=== PATIENT | male | born 1985 | race Asian ===

== ENCOUNTER 2017-10-28 23:33 | Emergency (ER) | payer MEDICARE, OTHER ==
[~2017-10-28] VITALS: Ht 162.6 cm; Wt 90.9 kg
[~2017-10-28 23:33] MED LIST: ARIP10TA8 PO; BENZ2TAB58 PO; DIVA500T52 PO; OLAN15TA2 PO
[2017-10-28] MEDS ORDERED: CLON0.5T4 PO (23:52)
[2017-10-28] MEDS ORDERED: ARIP400S IM (23:52)
[2017-10-28] MEDS ORDERED: DIVA500T52 PO (23:52)
[2017-10-29 00:23] LABS: BASOPHILS % (AUTO) 0.3 % (0.0-2.0); EOSINOPHILS % (AUTO) 2.3 % (1.0-6.0); HEMATOCRIT 51.1 % (41-53); HEMOGLOBIN 17.2 g/dL (13.5-17.5); LYMPHOCYTES # (AUTO) 2.8 K/uL (1.0-4.8); LYMPHOCYTES % (AUTO) 26.9 % (22.0-44.0); MEAN CORPUSCULAR HEMOGLOBIN 32.6 pg (26.0-34.0); MEAN CORPUSCULAR HGB CONC 33.6 G/dL (31.0-37.0); MEAN CORPUSCULAR VOLUME 97 fL (80-100); MONOCYTES # (AUTO) 0.8 K/uL (0.1-1.0); MONOCYTES % (AUTO) 7.7 % (2.0-9.0); NEUTROPHILS # (AUTO) 6.6 K/uL (1.8-7.7); NEUTROPHILS % (AUTO) 62.8 % (40.0-70.0); PLATELET COUNT (AUTO) 230 K/uL (150-450); RED BLOOD CELL COUNT(AUTO) 5.26 MIL/uL (4.50-5.90); RED CELL DISTRIBUTION WIDTH 13.2 % (11.5-14.5)
[2017-10-29 00:33] LABS: ANION GAP 5 mmol/L (8-16); CALCIUM, TOTAL 8.7 mg/dL (8.8-10.5); CARBON DIOXIDE 31 mmol/L (22-29); CHLORIDE 101 mmol/L (98-107); CREATININE 0.99 mg/dL (0.60-1.30); GLOMERULAR FILTR. RATE CALC > 60 mL/min (>60); GLUCOSE,RANDOM 94 mg/dL (70-110); POTASSIUM 4.1 mmol/L (3.5-5.1); SODIUM SERUM 137 mmol/L (136-145); UREA NITROGEN, BLOOD 17 mg/dL (7-18)
[2017-10-29 00:38] LABS: ALANINE AMINOTRANSFERASE 37 U/L (12-78); ALBUMIN 3.3 g/dL (3.4-5.0); ALKALINE PHOSPHATASE 48 U/L (46-116); ASPARTATE AMINOTRANSFERASE 23 U/L (15-37); BILIRUBIN,TOTAL 0.3 mg/dL (0.1-1.0); TOTAL PROTEIN, SERUM 6.8 g/dL (6.4-8.2)
[2017-10-29 01:05] VITALS: BP 121/81
== END 2017-10-29 01:25 | disposition home or self-care (01) ==
LOC: EMS 23:35
DX: R07.89 Other chest pain (principal); F20.9 Schizophrenia, unspecified
CPT/HCPCS: 93005; 99285

== ENCOUNTER 2018-01-11 08:54 | Emergency (ER) | payer MEDICARE, SELFPAY ==
[~2018-01-11] VITALS: Ht 162.6 cm; Wt 88.6 kg
[~2018-01-11 08:54] MED LIST changes: +ARIP400S IM; -BENZ2TAB58 PO; +CLON0.5T4 PO; -OLAN15TA2 PO
[2018-01-11 09:30] VITALS: BP 129/84
[2018-01-11 09:30] LABS: BASOPHILS % (AUTO) 0.4 % (0.0-2.0); EOSINOPHILS % (AUTO) 1.3 % (1.0-6.0); LYMPHOCYTES # (AUTO) 1.6 K/uL (1.0-4.8); LYMPHOCYTES % (AUTO) 14.5 % (22.0-44.0); MEAN CORPUSCULAR HEMOGLOBIN 33.2 pg (26.0-34.0); MEAN CORPUSCULAR HGB CONC 34.6 G/dL (31.0-37.0); MEAN CORPUSCULAR VOLUME 96 fL (80-100); MONOCYTES # (AUTO) 0.5 K/uL (0.1-1.0); MONOCYTES % (AUTO) 4.5 % (2.0-9.0); NEUTROPHILS # (AUTO) 8.7 K/uL (1.8-7.7); NEUTROPHILS % (AUTO) 79.3 % (40.0-70.0); PLATELET COUNT (AUTO) 266 K/uL (150-450); RED BLOOD CELL COUNT(AUTO) 5.41 MIL/uL (4.50-5.90); RED CELL DISTRIBUTION WIDTH 12.8 % (11.5-14.5)
[2018-01-11 09:39] LABS: ANION GAP 9 mmol/L (8-16); CARBON DIOXIDE 26 mmol/L (22-29); CHLORIDE 102 mmol/L (98-107); CREATININE 0.95 mg/dL (0.60-1.30); GLOMERULAR FILTR. RATE CALC > 60 mL/min (>60); GLUCOSE,RANDOM 106 mg/dL (70-110); POTASSIUM 3.9 mmol/L (3.5-5.1); SODIUM SERUM 137 mmol/L (136-145); UREA NITROGEN, BLOOD 21 mg/dL (7-18)
[2018-01-11 09:43] LABS: AMPHET/METH SCREEN,URINE NEGATIVE (NEGATIVE); BARBITURATE SCREEN, URINE NEGATIVE (NEGATIVE); BENZODIAZEPINES SCREEN,URINE NEGATIVE (NEGATIVE); CANNABINOID SCREEN,URINE NEGATIVE (NEGATIVE); COCAINE SCREEN,URINE NEGATIVE (NEGATIVE); METHADONE SCREEN, URINE NEGATIVE (NEGATIVE); OPIATE SCREEN,URINE NEGATIVE (NEGATIVE)
[2018-01-11 09:44] LABS: ALANINE AMINOTRANSFERASE 58 U/L (12-78); ALBUMIN 3.6 g/dL (3.4-5.0); ALKALINE PHOSPHATASE 57 U/L (46-116); ASPARTATE AMINOTRANSFERASE 25 U/L (15-37); BILIRUBIN,TOTAL 0.2 mg/dL (0.1-1.0); TOTAL PROTEIN, SERUM 7.3 g/dL (6.4-8.2)
[2018-01-11 09:50] LABS: PHENCYCLIDINE SCREEN,URINE NEGATIVE (NEGATIVE)
== END 2018-01-11 11:13 | disposition home or self-care (01) ==
LOC: EMS 08:56
DX: F25.9 Schizoaffective disorder, unspecified (principal); F31.9 Bipolar disorder, unspecified; F41.9 Anxiety disorder, unspecified; Z76.0 Encounter for issue of repeat prescription
CPT/HCPCS: 36415; 80053; 80307; 85025; 99284; G0480

== ENCOUNTER 2018-01-31 07:22 | Emergency (ER) | payer MEDICARE ==
[~2018-01-31] VITALS: Ht 162.6 cm; Wt 90.9 kg
[~2018-01-31 07:22] MED LIST changes: -ARIP10TA8 PO; -DIVA500T52 PO
[2018-01-31 07:45] VITALS: BP 130/73
[2018-01-31 09:14] LABS: AMPHET/METH SCREEN,URINE NEGATIVE (NEGATIVE); BARBITURATE SCREEN, URINE NEGATIVE (NEGATIVE); BENZODIAZEPINES SCREEN,URINE NEGATIVE (NEGATIVE); CANNABINOID SCREEN,URINE NEGATIVE (NEGATIVE); COCAINE SCREEN,URINE NEGATIVE (NEGATIVE); METHADONE SCREEN, URINE NEGATIVE (NEGATIVE); OPIATE SCREEN,URINE NEGATIVE (NEGATIVE)
[2018-01-31 09:20] LABS: PHENCYCLIDINE SCREEN,URINE NEGATIVE (NEGATIVE)
== END 2018-01-31 09:40 | disposition home or self-care (01) ==
LOC: EMS 07:23
DX: F25.9 Schizoaffective disorder, unspecified (principal); F12.90 Cannabis use, unspecified, uncomplicated
CPT/HCPCS: 99284

== ENCOUNTER 2018-03-28 16:34 | Inpatient (IN) | payer MEDICARE, MEDICAID ==
[~2018-03-28] VITALS: Ht 162.6 cm; Wt 98.7 kg
[~2018-03-28 16:34] MED LIST changes: -CLON0.5T4 PO
[2018-03-28 19:59] LABS: BASOPHILS % (AUTO) 0.4 % (0.0-2.0); EOSINOPHILS % (AUTO) 1.7 % (1.0-6.0); HEMATOCRIT 52.3 % (41-53); HEMOGLOBIN 18.3 g/dL (13.5-17.5); LYMPHOCYTES # (AUTO) 2.4 K/uL (1.0-4.8); LYMPHOCYTES % (AUTO) 25.2 % (22.0-44.0); MEAN CORPUSCULAR HEMOGLOBIN 33.4 pg (26.0-34.0); MEAN CORPUSCULAR VOLUME 96 fL (80-100); MONOCYTES # (AUTO) 0.6 K/uL (0.1-1.0); MONOCYTES % (AUTO) 6.1 % (2.0-9.0); NEUTROPHILS # (AUTO) 6.3 K/uL (1.8-7.7); NEUTROPHILS % (AUTO) 66.6 % (40.0-70.0); PLATELET COUNT (AUTO) 255 K/uL (150-450); RED BLOOD CELL COUNT(AUTO) 5.47 MIL/uL (4.50-5.90); RED CELL DISTRIBUTION WIDTH 12.7 % (11.5-14.5)
[2018-03-28 20:22] LABS: ANION GAP 4 mmol/L (8-16); CALCIUM, TOTAL 8.8 mg/dL (8.8-10.5); CARBON DIOXIDE 30 mmol/L (22-29); CHLORIDE 105 mmol/L (98-107); GLOMERULAR FILTR. RATE CALC > 60 mL/min (>60); GLUCOSE,RANDOM 91 mg/dL (70-110); SODIUM SERUM 139 mmol/L (136-145); UREA NITROGEN, BLOOD 9 mg/dL (7-18)
[2018-03-28 20:28] LABS: ALANINE AMINOTRANSFERASE 39 U/L (12-78); ALKALINE PHOSPHATASE 63 U/L (46-116); ASPARTATE AMINOTRANSFERASE 19 U/L (15-37); BILIRUBIN,TOTAL 0.4 mg/dL (0.1-1.0); TOTAL PROTEIN, SERUM 7.8 g/dL (6.4-8.2)
[2018-03-28] MEDS ORDERED: HALOPERIDOL 5 MG TABLET PO PRN (23:15)
[2018-03-29 00:59] LABS: AMPHET/METH SCREEN,URINE NEGATIVE (NEGATIVE); BARBITURATE SCREEN, URINE NEGATIVE (NEGATIVE); BENZODIAZEPINES SCREEN,URINE NEGATIVE (NEGATIVE); CANNABINOID SCREEN,URINE NEGATIVE (NEGATIVE); COCAINE SCREEN,URINE NEGATIVE (NEGATIVE); METHADONE SCREEN, URINE NEGATIVE (NEGATIVE); OPIATE SCREEN,URINE NEGATIVE (NEGATIVE)
[2018-03-29 01:00] LABS: PHENCYCLIDINE SCREEN,URINE NEGATIVE (NEGATIVE)
[2018-03-29 04:49] VITALS: BP 126/81
[2018-03-29 08:30] VITALS: BP 123/60
[2018-03-29 09:20] LABS: HEMOGLOBIN A1C 5.2 % (4.5-6.2)
[2018-03-29 09:31] LABS: FREE T4 (FREE THYROXINE) 0.96 ng/dL (0.76-1.46); THYROID STIMULATING HORMONE 1.36 uIU/mL (0.36-3.74)
[2018-03-29] MEDS: NICOTINE 21 MG/24 HOUR PATCH TD SCH (14:55)
[2018-03-29 16:07] VITALS: BP 126/72
[2018-03-29] MEDS: BACITRACIN 28.4 GM OINTMENT TP SCH (16:29)
[2018-03-29] MEDS: ZOLPIDEM TARTRATE 10 MG TABLET PO PRN (20:54)
[2018-03-30 01:03] VITALS: BP 108/68
[2018-03-30 08:26] VITALS: BP 121/72
[2018-03-30] MEDS: SERTRALINE HCL 50 MG TABLET PO SCH (08:43)
[2018-03-30] MEDS: NICOTINE 21 MG/24 HOUR PATCH TD SCH (08:44)
[2018-03-30] MEDS: BACITRACIN 28.4 GM OINTMENT TP SCH ×2 (08:48→16:55)
[2018-03-30 16:04] VITALS: BP 125/74
[2018-03-30] MEDS: ZOLPIDEM TARTRATE 10 MG TABLET PO PRN (20:37)
[2018-03-31 01:55] VITALS: BP 125/77
[2018-03-31] MEDS: LORazepam 2 MG TABLET PO PRN (02:08)
[2018-03-31 08:14] VITALS: BP 119/74
[2018-03-31] MEDS: SERTRALINE HCL 50 MG TABLET PO SCH (08:36)
[2018-03-31] MEDS: NICOTINE 21 MG/24 HOUR PATCH TD SCH (08:37)
[2018-03-31] MEDS: BACITRACIN 28.4 GM OINTMENT TP SCH ×2 (08:38→16:14)
[2018-03-31 16:02] VITALS: BP 109/85
[2018-03-31] MEDS: ZOLPIDEM TARTRATE 10 MG TABLET PO PRN (20:35)
[2018-04-01 01:40] VITALS: BP 123/85
[2018-04-01] MEDS: LORazepam 2 MG TABLET PO PRN (03:25)
[2018-04-01 08:18] VITALS: BP 127/76
[2018-04-01] MEDS: SERTRALINE HCL 50 MG TABLET PO SCH (08:36)
[2018-04-01] MEDS: NICOTINE 21 MG/24 HOUR PATCH TD SCH (08:36)
[2018-04-01] MEDS: BACITRACIN 28.4 GM OINTMENT TP SCH ×2 (08:38→16:41)
[2018-04-01 16:04] VITALS: BP 110/60
[2018-04-01] MEDS: ZOLPIDEM TARTRATE 10 MG TABLET PO PRN (20:49)
[2018-04-02 05:48] VITALS: BP 101/61
[2018-04-02 08:21] VITALS: BP 126/74
[2018-04-02] MEDS: SERTRALINE HCL 50 MG TABLET PO SCH (09:37)
[2018-04-02] MEDS: BACITRACIN 28.4 GM OINTMENT TP SCH ×2 (09:38→16:34)
[2018-04-02] MEDS: NICOTINE 21 MG/24 HOUR PATCH TD SCH (09:43)
[2018-04-02 16:12] VITALS: BP 132/84
[2018-04-02] MEDS: ZOLPIDEM TARTRATE 10 MG TABLET PO PRN (21:02)
[2018-04-03 00:15] VITALS: BP 124/77
[2018-04-03 08:14] VITALS: BP 129/88
[2018-04-03] MEDS: SERTRALINE HCL 50 MG TABLET PO SCH (08:36)
[2018-04-03] MEDS: NICOTINE 21 MG/24 HOUR PATCH TD SCH (08:36)
[2018-04-03] MEDS: BACITRACIN 28.4 GM OINTMENT TP SCH (08:36)
[2018-04-03 16:10] VITALS: BP 138/85
[2018-04-03] MEDS: ZOLPIDEM TARTRATE 10 MG TABLET PO PRN (21:10)
[2018-04-04 00:13] VITALS: BP 114/61
[2018-04-04] MEDS: SERTRALINE HCL 50 MG TABLET PO SCH (08:37)
[2018-04-04] MEDS: NICOTINE 21 MG/24 HOUR PATCH TD SCH (08:37)
[2018-04-04 08:38] VITALS: BP 125/77
[2018-04-04 16:09] VITALS: BP 122/72
[2018-04-04] MEDS: ZOLPIDEM TARTRATE 10 MG TABLET PO PRN (20:45)
[2018-04-05 08:04] VITALS: BP 122/76
[2018-04-05] MEDS: SERTRALINE HCL 50 MG TABLET PO SCH (08:15)
[2018-04-05] MEDS: NICOTINE 21 MG/24 HOUR PATCH TD SCH (08:15)
[2018-04-05] MEDS ORDERED: SERT50TA12 PO (08:45)
[2018-04-26] MEDS ORDERED: ARIPiprazole ER SUSPENSION 400 MG PRE-FILLED DUAL CHAMBER SYRINGE IM SCH (09:00)
== END 2018-04-05 13:30 | disposition home or self-care (01) | DRG 885 ==
LOC: EMS 16:34 → B2X 23:30
PROVIDERS: ADMIT Psychiatry & Neurology Psychiatry; ATTEND Psychiatry & Neurology Psychiatry
DX: F25.0 Schizoaffective disorder, bipolar type (principal); R45.851 Suicidal ideations; E78.5 Hyperlipidemia, unspecified; F17.210 Nicotine dependence, cigarettes, uncomplicated; F41.9 Anxiety disorder, unspecified; I10 Essential (primary) hypertension; Z91.5 Personal history of self-harm; Z71.6 Tobacco abuse counseling; Z79.899 Other long term (current) drug therapy; Z82.0 Family history of epilepsy and other diseases of the nervous system
CPT/HCPCS: 83036; 84439; 84443; 99285; G0480

== ENCOUNTER 2018-04-11 06:00 | Emergency (ER) | payer MEDICARE, MEDICAID ==
[~2018-04-11] VITALS: Ht 167.6 cm; Wt 90.9 kg
[~2018-04-11 06:00] MED LIST changes: +SERT50TA12 PO
[2018-04-11 06:36] VITALS: BP 136/74
== END 2018-04-11 08:52 | disposition home or self-care (01) ==
LOC: EMS 06:04
DX: L30.9 Dermatitis, unspecified (principal)
CPT/HCPCS: 99282

== ENCOUNTER 2018-08-23 08:01 | Emergency (ER) | payer MEDICARE, MEDICAID ==
[~2018-08-23] VITALS: Ht 162.6 cm; Wt 100.0 kg
[2018-08-23] MEDS ORDERED: AZITHROMYCIN 250 MG TABLET PO ONE (09:15)
[2018-08-23] MEDS ORDERED: CefTRIAXone SODIUM 1 GM/VIAL IM ONE (09:15)
[2018-08-23 12:07] VITALS: BP 119/58
== END 2018-08-23 12:13 | disposition home or self-care (01) ==
LOC: EMS 08:02
DX: N34.2 Other urethritis (principal); F20.9 Schizophrenia, unspecified
CPT/HCPCS: 96372; 99283; J0696

== ENCOUNTER 2018-11-27 13:45 | Inpatient (IN) | payer MEDICAID, MEDICARE ==
[~2018-11-27] VITALS: Ht 162.6 cm; Wt 103.0 kg
[2018-11-27 15:42] LABS: ANION GAP 7 mmol/L (8-16); CARBON DIOXIDE 27 mmol/L (22-29); CHLORIDE 103 mmol/L (98-107); CREATININE 0.88 mg/dL (0.60-1.30); GLOMERULAR FILTR. RATE CALC > 60 mL/min (>60); GLUCOSE,RANDOM 87 mg/dL (70-110); POTASSIUM 3.8 mmol/L (3.5-5.1); SODIUM SERUM 137 mmol/L (136-145); UREA NITROGEN, BLOOD 14 mg/dL (7-18)
[2018-11-27 15:50] LABS: ALANINE AMINOTRANSFERASE 73 U/L (12-78); ALBUMIN 3.7 g/dL (3.4-5.0); ALKALINE PHOSPHATASE 55 U/L (46-116); ASPARTATE AMINOTRANSFERASE 34 U/L (15-37); BASOPHILS % (AUTO) 0.4 % (0.0-2.0); BILIRUBIN,TOTAL 0.2 mg/dL (0.1-1.0); EOSINOPHILS % (AUTO) 2.2 % (1.0-6.0); HEMATOCRIT 50.4 % (41-53); HEMOGLOBIN 17.5 g/dL (13.5-17.5); LYMPHOCYTES # (AUTO) 1.9 K/uL (1.0-4.8); LYMPHOCYTES % (AUTO) 19.7 % (22.0-44.0); MEAN CORPUSCULAR HEMOGLOBIN 33.4 pg (26.0-34.0); MEAN CORPUSCULAR HGB CONC 34.8 G/dL (31.0-37.0); MEAN CORPUSCULAR VOLUME 96 fL (80-100); MONOCYTES # (AUTO) 0.5 K/uL (0.1-1.0); MONOCYTES % (AUTO) 5.5 % (2.0-9.0); NEUTROPHILS # (AUTO) 6.8 K/uL (1.8-7.7); NEUTROPHILS % (AUTO) 72.2 % (40.0-70.0); PLATELET COUNT (AUTO) 264 K/uL (150-450); RED BLOOD CELL COUNT(AUTO) 5.25 MIL/uL (4.50-5.90); RED CELL DISTRIBUTION WIDTH 12.5 % (11.5-14.5); TOTAL PROTEIN, SERUM 7.5 g/dL (6.4-8.2)
[2018-11-27 16:00] LABS: AMPHET/METH SCREEN,URINE NEGATIVE (NEGATIVE); BARBITURATE SCREEN, URINE NEGATIVE (NEGATIVE); BENZODIAZEPINES SCREEN,URINE NEGATIVE (NEGATIVE); CANNABINOID SCREEN,URINE NEGATIVE (NEGATIVE); COCAINE SCREEN,URINE NEGATIVE (NEGATIVE); METHADONE SCREEN, URINE NEGATIVE (NEGATIVE); OPIATE SCREEN,URINE NEGATIVE (NEGATIVE); PHENCYCLIDINE SCREEN,URINE NEGATIVE (NEGATIVE)
[2018-11-27] MEDS ORDERED: HALOPERIDOL LACTATE 5 MG/ML VIAL IM ONE (17:30)
[2018-11-27] MEDS ORDERED: LORazepam 2 MG/ML VIAL IM ONE (17:30)
[2018-11-27] MEDS ORDERED: DiphenhydrAMINE HCL 50 MG/ML VIAL IM ONE (17:30)
[2018-11-27] MEDS ORDERED: ZOLPIDEM TARTRATE 10 MG TABLET PO PRN (20:00)
[2018-11-27] MEDS ORDERED: HALOPERIDOL 5 MG TABLET PO PRN (20:00)
[2018-11-28 00:11] VITALS: BP 120/78
[2018-11-28] MEDS ORDERED: PNEUMOCOCCAL VACCINE POLYVALENT 0.5 ML VIAL [PPSV23] IM ONE (02:15)
[2018-11-28] MEDS ORDERED: IBUPROFEN 600 MG TABLET PO PRN (07:45)
[2018-11-28] MEDS ORDERED: BENZOCAINE/MENTHOL LOZENGE MM PRN (07:45)
[2018-11-28] MEDS ORDERED: LOPERAMIDE HCL 2 MG CAPSULE PO PRN (07:45)
[2018-11-28] MEDS ORDERED: PETROLATUM,WHITE 71 GM JELLY TP PRN (07:45)
[2018-11-28] MEDS ORDERED: MAGNESIUM HYDROXIDE SUSPENSION 30 ML UDCUP PO PRN (07:45)
[2018-11-28] MEDS ORDERED: ONDANSETRON HCL 4 MG TABLET PO PRN (07:45)
[2018-11-28] MEDS ORDERED: BACITRACIN 28.4 GM OINTMENT TP PRN (07:45)
[2018-11-28] MEDS ORDERED: CloNIDine HCL 0.1 MG TABLET PO PRN (07:45)
[2018-11-28] MEDS ORDERED: MAG HYDROX/AL HYDROX/SIMETH ES 30 ML SUSPENSION UDCUP PO PRN (07:45)
[2018-11-28] MEDS ORDERED: ACETAMINOPHEN 325 MG TABLET PO PRN (07:45)
[2018-11-28] MEDS ORDERED: ALBUTEROL SULFATE HFA 90 MCG/PUFF 8 GM INHALER IH PRN (07:45)
[2018-11-28 07:56] LABS: HEMOGLOBIN A1C 5.5 % (4.5-6.2)
[2018-11-28 08:08] VITALS: BP 112/67
[2018-11-28 08:22] LABS: CHOL/HDL RATIO 4.3 (4.2-7.3); FREE T4 (FREE THYROXINE) 1.08 ng/dL (0.76-1.46); THYROID STIMULATING HORMONE 1.68 uIU/mL (0.36-3.74)
[2018-11-28] MEDS: OMEPRAZOLE 20 MG CAPSULE PO SCH (09:12)
[2018-11-28] MEDS: DOCUSATE SODIUM 100 MG CAPSULE PO SCH (09:12)
[2018-11-28 16:04] VITALS: BP 131/63
[2018-11-29 00:57] VITALS: BP 109/63
[2018-11-29] MEDS: LORazepam 2 MG TABLET PO PRN ×2 (03:24→19:56)
[2018-11-29] MEDS: DOCUSATE SODIUM 100 MG CAPSULE PO SCH (08:26)
[2018-11-29] MEDS: OMEPRAZOLE 20 MG CAPSULE PO SCH (08:26)
[2018-11-29 08:30] VITALS: BP 130/67
[2018-11-29 17:59] VITALS: BP 117/62
[2018-11-30 01:43] VITALS: BP 112/68
[2018-11-30 08:23] VITALS: BP 123/78
[2018-11-30] MEDS: DOCUSATE SODIUM 100 MG CAPSULE PO SCH (08:30)
[2018-11-30] MEDS: OMEPRAZOLE 20 MG CAPSULE PO SCH (08:30)
[2018-11-30] MEDS: NICOTINE 21 MG/24 HOUR PATCH TD PRN (13:42)
[2018-11-30] MEDS: LORazepam 2 MG TABLET PO PRN ×2 (16:07→20:26)
[2018-11-30 16:08] VITALS: BP 101/63
[2018-12-01 02:27] VITALS: BP 137/77
[2018-12-01] MEDS: LORazepam 2 MG TABLET PO PRN ×4 (02:28→17:11)
[2018-12-01] MEDS: DOCUSATE SODIUM 100 MG CAPSULE PO SCH (08:46)
[2018-12-01] MEDS: OMEPRAZOLE 20 MG CAPSULE PO SCH (08:46)
[2018-12-01 09:51] VITALS: BP 124/71
[2018-12-01] MEDS: NICOTINE 21 MG/24 HOUR PATCH TD PRN (12:21)
[2018-12-01 16:02] VITALS: BP 104/64
[2018-12-02 04:48] VITALS: BP 110/68
[2018-12-02 08:04] VITALS: BP 115/67
[2018-12-02] MEDS: DOCUSATE SODIUM 100 MG CAPSULE PO SCH (08:11)
[2018-12-02] MEDS: LORazepam 2 MG TABLET PO PRN ×2 (08:11→18:29)
[2018-12-02] MEDS: OMEPRAZOLE 20 MG CAPSULE PO SCH (08:11)
[2018-12-02] MEDS: NICOTINE 21 MG/24 HOUR PATCH TD PRN (08:12)
[2018-12-02 16:01] VITALS: BP 113/65
[2018-12-03 03:14] VITALS: BP 120/81
[2018-12-03] MEDS: LORazepam 2 MG TABLET PO PRN ×3 (03:41→17:20)
[2018-12-03 08:12] VITALS: BP 122/68
[2018-12-03] MEDS: OMEPRAZOLE 20 MG CAPSULE PO SCH (08:25)
[2018-12-03] MEDS: OMEGA-3/DHA/EPA/FISH OIL 1,000 MG CAPSULE PO SCH (08:25)
[2018-12-03] MEDS: DOCUSATE SODIUM 100 MG CAPSULE PO SCH (08:25)
[2018-12-03] MEDS: NICOTINE 21 MG/24 HOUR PATCH TD PRN (08:32)
[2018-12-03] MEDS ORDERED: OMEP10SU2 PO (12:12)
[2018-12-03] MEDS ORDERED: OMEG-135 PO (12:12)
[2018-12-03] MEDS ORDERED: DOCU100C33 PO (12:12)
[2018-12-03] MEDS ORDERED: OMEP20 PO (12:13)
[2018-12-03 16:07] VITALS: BP 136/67
[2018-12-04 01:58] VITALS: BP 120/67
[2018-12-04] MEDS: LORazepam 2 MG TABLET PO PRN (04:50)
[2018-12-04 08:09] VITALS: BP 119/70
[2018-12-04] MEDS: OMEPRAZOLE 20 MG CAPSULE PO SCH (08:26)
[2018-12-04] MEDS: DOCUSATE SODIUM 100 MG CAPSULE PO SCH (08:26)
[2018-12-04] MEDS: OMEGA-3/DHA/EPA/FISH OIL 1,000 MG CAPSULE PO SCH (08:26)
== END 2018-12-04 14:55 | disposition home or self-care (01) | DRG 885 ==
LOC: EMS 13:45 → B2X 21:59
PROVIDERS: ADMIT Psychiatry & Neurology Psychiatry; ATTEND Psychiatry & Neurology Psychiatry
DX: F20.0 Paranoid schizophrenia (principal); E78.5 Hyperlipidemia, unspecified; F17.200 Nicotine dependence, unspecified, uncomplicated; G47.00 Insomnia, unspecified; K59.00 Constipation, unspecified; R45.850 Homicidal ideations
CPT/HCPCS: 83036; 84439; 84443; 96372; 99291; G0480; J1200; J1630; J2060

== ENCOUNTER 2019-06-02 19:01 | Emergency (ER) | payer MEDICARE ==
[~2019-06-02] VITALS: Ht 162.6 cm; Wt 109.1 kg
[~2019-06-02 19:01] MED LIST changes: -ARIP400S IM; +OMEG-135 PO; -SERT50TA12 PO
[2019-06-02 19:11] VITALS: BP 134/86
== END 2019-06-02 21:00 | disposition left against medical advice (07) ==
LOC: EMS 19:05
DX: Z53.21 Procedure and treatment not carried out due to patient leaving prior to being seen by health care provider (principal)